=== PATIENT | male | born 1975 | race Caucasian/White ===

== ENCOUNTER 2019-10-26 09:08 | Inpatient (IN) | payer BC ==
[2019-10-26] MEDS ORDERED: Diltiazem HCl 125 MG, Admixture Fee 1 EACH in Sodium Chloride 0.9% 100 ML IVPB SCH (09:45)
[2019-10-26 10:01] LABS: #Basophils 0.1 thou/uL (0.0-0.2); #Eosinphils 0.1 thou/uL (0.0-0.7); #Monocytes 0.5 thou/uL (0.11-0.59); #Neutrophils 3.8 thou/uL (1.40-6.50); %Basophils 1.1 % (0.0-1.0); %Eosinophils 1.6 % (0.0-10.0); %Lymphocytes 30.5 % (21.0-51.0); %Neutrophils 59.7 % (42.0-75.0); Hemoglobin 16.5 g/dL (14.0-18.0); Mean Corpuscular HGB CONC 34.8 g/dL (32.0-36.0); Mean Corpuscular Volume 89.3 fL (78.0-98.0); Mean Platelet Volume 6.7 fL (7.4-10.4); Platelet Count 235 thou/uL (130-400); RBC Distribution Width 11.9 % (11.5-14.5); Red Blood Cell (RBC) Count 5.32 mill/uL (4.70-6.10); White Blood Cell (WBC) Count 6.4 thou/uL (4.8-10.8)
--- NOTE | 2019-10-26 10:03 | RAD ---
EXAM: Portable chest PROVIDED CLINICAL HISTORY: Chest pain COMPARISON: 05/31/2013 FINDINGS: Cardiac and mediastinal silhouette is within normal limits. No focal consolidation, pleural fluid or pneumothorax evident. IMPRESSION: No evidence for an acute cardiopulmonary process.
[2019-10-26 10:15] LABS: ALT (SGPT) 22 U/L (8-55); AST (SGOT) 26 U/L (5-34); Albumin 4.7 g/dL (3.5-5.0); Alkaline Phosphatase 63 U/L (40-110); Anion Gap 15 mmol/L (10-20); BUN (Urea Nitrogen) 15 mg/dL (8.9-20.6); Calc. Creatinine Clearance 0 mL/min (70-130); Calcium 9.4 mg/dL (7.8-10.44); Carbon Dioxide 26 mmol/L (22-29); Chloride 105 mmol/L (98-107); Estimated GFR-MDRD 72; Globulin 3.4 g/dL (2.4-3.5); Glucose 86 mg/dL (70-105); Magnesium 2.1 mg/dL (1.6-2.6); Protein, Total 8.1 g/dL (6.0-8.3); Sodium 142 mmol/L (136-145)
[2019-10-26] MEDS ORDERED: Enoxaparin Sodium 80 MG/0.8 ML SYRINGE ONE (11:22)
[2019-10-26] MEDS ORDERED: Enoxaparin Sodium 40 MG/0.4 ML SYRINGE ONE ×2 (11:22→11:23)
[2019-10-26 13:43] LABS: Troponin I Less than 0.010 ng/mL (< 0.028)
[2019-10-26] MEDS ORDERED: Diltiazem 125 MG in Sodium Chloride 0.9% 100 ML IVPB SCH (13:43)
[2019-10-26] MEDS ORDERED: Acetaminophen 325 MG TAB PO PRN (13:43)
[2019-10-26 14:02] VITALS: BMI 29.5
--- NOTE | 2019-10-26 14:44 | HP ---
PRIMARY CARE PHYSICIAN: Serafin Nguyễn DO CHIEF COMPLAINT: "I felt my heart racing and chest tightness." HISTORY OF PRESENT ILLNESS: Mr. Sullivan is a pleasant 44-year-old gentleman, who has a history of hyperthyroidism, status post thyroid ablation. He was in his usual state of health until Sunday. He says he was making a presentation when he started to notice some shortness of breath and he could feel his heart racing. He said this lasted about 10 to 15 minutes. The next day on , he felt okay. The following day on Sunday, he noticed some shortness of breath as well and he also felt his heart beating hard again and at this time, it lasted about half hour to an hour. It happened again on Sunday evening. He was noticing that he was belching a lot during the time, but there was no nausea, no vomiting, no dizziness, no lightheadedness. He says that he has been fairly active and has not noticed any chest pain or difficulty when he is out moving around and he had a similar episode happen several years ago. This is when he was found to have hyperthyroidism and he had a thyroid ablation and has been fine ever since. REVIEW OF SYSTEMS: All systems were reviewed and are negative except for that mentioned in the history of present illness. PAST MEDICAL HISTORY: Significant for hyperthyroidism. PAST SURGICAL HISTORY: He has had a thyroid ablation. ALLERGIES: NO KNOWN DRUG ALLERGIES. SOCIAL HISTORY: He works as a professor. He is , has 2 children. He denies any smoking. He does drink a beer occasionally a week. FAMILY HISTORY: Significant for diabetes. His sister had diabetes as well as grandparents and it is a combination of both type 1 and type 2 diabetes. Father had atrial fibrillation. Mother had breast cancer. CURRENT MEDICATION: Synthroid 75 mcg p.o. PHYSICAL EXAMINATION: GENERAL: He is alert and oriented. He appears to be in no acute distress. He is well developed and well nourished. VITAL SIGNS: Blood pressure 149/98; respiratory rate of 20; heart rate of 92 and at the highest, the heart rate was 150. HEENT: Pupils are equal, round, and reactive. Extraocular muscles are intact. His sclerae are anicteric. Throat, there is no erythema. No exudates. NECK: No adenopathy. No bruits. LUNGS: Clear to auscultation. There are no wheezing, no rales, no rhonchi. CARDIOVASCULAR: He has a normal S1 and S2. I did not appreciate an S3 or S4. No murmurs, clicks, or rubs. ABDOMEN: Soft. It is nontender and nondistended. Positive for bowel sounds. There is no rebound, no guarding, no organomegaly. EXTREMITIES: There is no clubbing or cyanosis. No edema. No calf tenderness. No joint effusions. NEUROLOGIC: The exam is nonfocal. SKIN AND INTEGUMENT: No skin changes. No rash. LABORATORY RESULTS: The white blood cell count is 6.4, hemoglobin 16.5, hematocrit is 47.5, and platelet count is 235. His chemistry panel was completely normal. He had a TSH, which was normal, but his EKG, it is sinus. It is a narrow complex tachycardia, possibly SVT or atrial fibrillation. The heart rate was around 158. ASSESSMENT AND PLAN: 1. This is a pleasant 44-year-old gentleman, who presents to the emergency room with a narrow complex tachycardia. He has been placed on a Cardizem drip to control his rate. This is new onset and it required Cardizem to control the rate. Therefore, he will be admitted inpatient. We will get an echocardiogram. Continue the Cardizem and consult Cardiology for further recommendations. 2. Hyperthyroidism, status post ablation. His TSH is currently negative and he appears clinically euthyroid as well. We will continue his Synthroid at the current dose and deep venous thrombosis prophylaxis will be performed with SCDs. Job ID: [id number]
[2019-10-26 17:16] LABS: Troponin I Less than 0.010 ng/mL (< 0.028)
[2019-10-26] MEDS: Famotidine 20 MG TAB PO SCH (20:23)
[2019-10-27 04:33] LABS: #Eosinphils 0.1 thou/uL (0.0-0.7); #Lymphocytes 2.5 thou/uL (1.20-3.40); #Monocytes 0.5 thou/uL (0.11-0.59); #Neutrophils 3.5 thou/uL (1.40-6.50); %Basophils 0.7 % (0.0-1.0); %Eosinophils 1.3 % (0.0-10.0); %Lymphocytes 38.2 % (21.0-51.0); %Monocytes 7.8 % (0.0-10.0); Mean Corpuscular HGB CONC 33.6 g/dL (32.0-36.0); Mean Corpuscular Hemoglobin 29.8 pg (27.0-31.0); Mean Corpuscular Volume 88.8 fL (78.0-98.0); Mean Platelet Volume 6.2 fL (7.4-10.4); Platelet Count 227 thou/uL (130-400); RBC Distribution Width 11.4 % (11.5-14.5); Red Blood Cell (RBC) Count 5.01 mill/uL (4.70-6.10); White Blood Cell (WBC) Count 6.6 thou/uL (4.8-10.8)
[2019-10-27 04:47] LABS: Anion Gap 12 mmol/L (10-20); BUN (Urea Nitrogen) 10 mg/dL (8.9-20.6); Calc. Creatinine Clearance 153 mL/min (70-130); Calcium 8.8 mg/dL (7.8-10.44); Carbon Dioxide 27 mmol/L (22-29); Chloride 104 mmol/L (98-107); Estimated GFR-MDRD 80; Glucose 88 mg/dL (70-105); Potassium 3.9 mmol/L (3.5-5.1); Sodium 139 mmol/L (136-145)
[2019-10-27] MEDS ORDERED: Levothyroxine 175 MCG TAB PO SCH (09:00)
[2019-10-27] MEDS: Famotidine 20 MG TAB PO SCH ×2 (10:04→21:33)
--- NOTE | 2019-10-27 11:55 | PDOC.HOSPP ---
- Subjective Encounter Date: 10/27/19 Encounter Time: 11:54 Subjective: Mr. Sullivan was seen today in follow-up of narrow complex tachycardia. He does not have any complaints. He denies feeling short of breath, no dizziness or lightheadedness. - Objective Vital Signs & Weight: Vital Signs (12 hours) Temp Pulse Resp BP BP Pulse Ox 10/27/19 07:37 98.4 F 90 18 131/87 97 10/27/19 04:00 97.6 F 69 18 125/80 96 10/27/19 00:00 73 139/75 Weight Weight 258 lb I&O: 10/26/19 10/27/19 10/28/19 06:59 06:59 06:59 Intake Total 2117.7 Output Total 2550 Balance -432.3 Result Diagrams: 10/27/19 03:49 10/27/19 03:49 Hospitalist ROS - Medication Medications: Active Medications Generic Name Dose Route Start Last Admin Trade Name Freq PRN Reason Stop Dose Admin Acetaminophen 650 mg 10/26/19 13:43 10/26/19 20:25 Tylenol PO 650 mg Q4H PRN Administration Headache/Fever/Mild Pain (1-3) Famotidine 20 mg 10/26/19 21:00 10/27/19 10:04 Pepcid PO 20 mg BID JENAE Administration Levothyroxine Sodium 175 mcg 10/27/19 09:00 10/27/19 10:04 Synthroid PO Not Given DAILY JENAE Sodium Chloride 10 ml 10/27/19 09:00 10/27/19 10:05 Flush - Normal Saline IVF 10 ml Q12HR JENAE Administration - Exam Eye: PERRL Respiratory: CTAB, no wheezes, no rales, no ronchi, normal chest expansion, no tachypnea Gastrointestinal: soft, non-tender, non-distended, normal bowel sounds, no palpable masses, no hepatomegaly, no splenomegaly, no bruit Extremities: no cyanosis, no clubbing, no edema Hosp A/P (1) Arrhythmia, atrial Code(s): I49.8 - OTHER SPECIFIED CARDIAC ARRHYTHMIAS Status: Acute (2) Hypothyroidism Code(s): E03.9 - HYPOTHYROIDISM, UNSPECIFIED Status: Chronic - Plan * Narrow complex Tachycardia- ? etiology- possibly AFIB/Aflutter, SVT- will await Cardiology recommendations * Echo noted * Hypothyroidism- clinically stable
[2019-10-27] MEDS ORDERED: Diltiazem 125 MG in Sodium Chloride 0.9% 100 ML IVPB SCH (17:02)
[2019-10-27 18:14] LABS: Free T4 (Free Thyroxine) 1.28 ng/dL (0.70-1.48)
--- NOTE | 2019-10-27 23:08 | CON ---
DATE OF CONSULTATION: HISTORY OF PRESENT ILLNESS: Mr. Manda Sullivan is a 44-year-old gentleman admitted with atrial fibrillation with fast ventricular response. He first developed atrial fibrillation in his mid 20s when he was found to be hyperthyroid. He ultimately underwent I-131 ablation of his thyroid and has been on replacement therapy since. Over the years, he has intermittently had atrial fibrillation. He was evaluated by Dr. Saldaña in the hospital in May 2013. It was felt that he probably was having PVCs and no atrial fibrillation was documented. He was seen by Dr. Saldaña and it was felt that he had appearance of ventricular contractions. The patient underwent Cardiolite treadmill testing, which revealed no evidence of ischemia. Mr. Sullivan states his last episode of rapid heartbeat was 2 years ago. He then went to an out of town conference and was not getting much rest and for the 1st time in 5 years, drank a lot of caffeinated beverages. He then started noticing increasing episodes of rapid heartbeat associated with some chest pressure. He came to the emergency room yesterday and was found to be in atrial fibrillation with rapid ventricular response, was started on intravenous Cardizem and converted to sinus rhythm. However, he continues to intermittently have breakthrough atrial fibrillation. At the present time, his last caffeinated beverage was 48 hours ago. PAST MEDICAL HISTORY: History of hyperthyroidism, status post I-131 ablation. OPERATIONS: None. MEDICATIONS: Levothyroxine 150 mcg daily. ALLERGIES: NONE. SOCIAL HISTORY: He does not smoke. He occasionally has a beer. He states he stopped caffeinated beverages 5 years ago, but has had some over the last 4 or 5 days. FAMILY HISTORY: Father had atrial fibrillation. REVIEW OF SYSTEMS: A 10-point review of systems is otherwise unremarkable. PHYSICAL EXAMINATION: VITAL SIGNS: Blood pressure 120/78, pulse 70. HEENT: PERRL. NECK: Supple. CHEST: Clear. CARDIAC: S1 and S2 normal without any S3, S4, or murmurs. ABDOMEN: Normal bowel sounds without tenderness or organomegaly. EXTREMITIES: Revealed no clubbing, cyanosis, or edema. NEUROLOGIC: Grossly intact. SKIN: Warm and dry. LABORATORY DATA: 1. EKG on admission revealed atrial fibrillation with rate of 158 per minute. 2. Cardiac enzymes are unremarkable. 3. CBC is normal. Sodium 139, potassium 3.9, chloride 104, carbon dioxide 27, BUN 10 and creatinine 1.02. 4. Echocardiogram revealed ejection fraction of 55% to 60% mild mitral regurgitation, mild tricuspid regurgitation. TSH is normal. IMPRESSION: 1. Paroxysmal atrial fibrillation since his mid 20s, although the last episode was 2 years ago until he had significant caffeine intake recently. 2. Status post I-131 ablation for hyperthyroidism, currently hypothyroid. RECOMMENDATIONS: Mr. Sullivan's CHADS-VASc score is less than 2 and he will be placed on aspirin 325 q.a.m. These episodes temporally seem to be related to a high caffeine intake. I will have the Cardizem tapered. If he does recur, then consideration should be given to suppressive therapy with flecainide. If it does not recur, then I would not place him on suppressive therapy at this time. With his last episode 2 years ago, I would just advise avoiding caffeine. Also, free T4 and free T3 will be obtained. Job ID: [id number]
[2019-10-28] MEDS ORDERED: Levothyroxine 150 MCG TAB ONE (05:51)
[2019-10-28] MEDS ORDERED: Levothyroxine 150 MCG TAB PO SCH (06:00)
[2019-10-28] MEDS: Famotidine 20 MG TAB PO SCH (08:18)
[2019-10-28] MEDS ORDERED: Aspirin 325 mg Enteric Coated Tablet PO SCH (09:00)
[2019-10-28] MEDS ORDERED: Flecainide 50 MG TAB PO SCH (09:00)
[2019-10-28 11:04] VITALS: BP 124/87; TEMP 98.1
--- NOTE | 2019-10-28 11:31 | PDOC.HOSPP ---
- Subjective Encounter Date: 10/28/19 Encounter Time: 11:29 Subjective: Mr. Sullivan was seen today in follow-up of AFIB with RVR. He does not have any complaints. - Objective Vital Signs & Weight: Vital Signs (12 hours) Temp Pulse Resp BP BP Pulse Ox 10/28/19 11:00 98.1 F 78 18 124/87 99 10/28/19 07:06 97.5 F L 73 18 124/84 97 10/27/19 23:44 60 122/63 Weight Weight 257 lb 3.2 oz I&O: 10/27/19 10/28/19 10/29/19 06:59 06:59 06:59 Intake Total 2117.7 3066 Output Total 2550 2640 Balance -432.3 426 Result Diagrams: 10/27/19 03:49 10/27/19 03:49 Hospitalist ROS - Medication Medications: Active Medications Generic Name Dose Route Start Last Admin Trade Name Freq PRN Reason Stop Dose Admin Acetaminophen 650 mg 10/26/19 13:43 10/26/19 20:25 Tylenol PO 650 mg Q4H PRN Administration Headache/Fever/Mild Pain (1-3) Aspirin 325 mg 10/28/19 09:00 10/28/19 08:18 Ecotrin PO 325 mg DAILY JENAE Administration Famotidine 20 mg 10/26/19 21:00 10/28/19 08:18 Pepcid PO 20 mg BID JENAE Administration Flecainide Acetate 50 mg 10/28/19 09:00 10/28/19 09:07 Tambocor PO 50 mg Q12HR JENAE Administration Levothyroxine Sodium 150 mcg 10/28/19 06:00 10/28/19 05:58 Synthroid PO 150 mcg 0600 JENAE Administration Sodium Chloride 10 ml 10/27/19 09:00 10/28/19 08:18 Flush - Normal Saline IVF 10 ml Q12HR JENAE Administration - Exam Eye: PERRL Heart: RRR, no murmur, no gallops, no rubs, normal peripheral pulses Respiratory: CTAB, no wheezes, no rales, no ronchi, normal chest expansion, no tachypnea, normal percussion Gastrointestinal: soft, non-tender, non-distended, normal bowel sounds, no palpable masses, no hepatomegaly Extremities: no cyanosis, no clubbing, no edema Hosp A/P (1) Arrhythmia, atrial Code(s): I49.8 - OTHER SPECIFIED CARDIAC ARRHYTHMIAS Status: Acute (2) Hypothyroidism Code(s): E03.9 - HYPOTHYROIDISM, UNSPECIFIED Status: Chronic - Plan * AFIB with RVR - resolved * Cardiology recommendations noted * Will continue Flecanide, and Aspirin, Avoid Caffeine * Plan is to place Event Monitor
--- NOTE | 2019-10-29 03:05 | DIS ---
DATE OF ADMISSION: 10/26/2019 DATE OF DISCHARGE: 10/28/2019 DISCHARGE DISPOSITION: Home. DISCHARGE DIAGNOSES: 1. Paroxysmal atrial fibrillation. 2. Hypothyroidism. DISCHARGE MEDICATIONS: Include: 1. Tambocor 50 mg twice daily. 2. Aspirin 325 mg daily. 3. Levothyroxine 150 mcg daily. PROCEDURES DONE DURING ADMISSION: Patient had an echocardiogram, which was essentially normal, normal ejection fraction of 50% to 55%. CODE STATUS: Full code. ALLERGIES: NO KNOWN DRUG ALLERGIES. HOSPITAL COURSE: Mr. Sullivan is a pleasant 44-year-old gentleman, who presented to the emergency room after having palpitations. He was found to be in atrial fibrillation with rapid ventricular response. He was placed on IV Cardizem and admitted. Cardiology was consulted. He underwent echocardiogram as well. The echocardiogram was essentially negative and the atrial fibrillation was very variable and paroxysmal. Each episode lasting no more than about 30 minutes. He did admit to a recent load on caffeine and has been counseled on the need to avoid caffeine in the future. He is also going to follow up with Dr. Martins and have an event monitor placed and at the time of discharge he was back in sinus rhythm. Again, placed on flecainide and aspirin and will need close outpatient followup. Job ID: [id number]
== END 2019-10-28 12:19 | disposition home or self-care (01) | DRG 310 ==
LOC: ERS 09:08 → 2NO 12:20
PROVIDERS: ADMIT Internal Medicine; ATTEND Internal Medicine
DX: I48.0 Paroxysmal atrial fibrillation (principal); Z79.899 Other long term (current) drug therapy; E03.9 Hypothyroidism, unspecified
CPT/HCPCS: 36415; 71045; 80048; 80053; 83735; 84439; 84443; 84481; 84484; 85025; 93005; 93306; 96365; 96366; 96372; 96376; J1650; J3490

== ENCOUNTER 2023-03-26 07:30 | Emergency (ER) | payer BC ==
[2023-03-26] MEDS ORDERED: Meclizine HCl 25 MG TAB ONE (08:28)
[2023-03-26] MEDS ORDERED: Ondansetron PF 4 MG/2 ML Vial ONE ×2 (08:28→08:41)
[2023-03-26] MEDS ORDERED: LORazepam 2 MG/ML SYR.(CARPUJECT) ONE (08:28)
[2023-03-26] MEDS ORDERED: Dexamethasone 10 MG/ML VIAL ONE (08:28)
[2023-03-26 08:43] LABS: #Monocytes 0.4 thou/uL (0.11-0.59); #Neutrophils 6.1 thou/uL (1.40-6.50); %Basophils 0.4 % (0.0-1.0); %Eosinophils 0.4 % (0.0-10.0); %Monocytes 5.3 % (0.0-10.0); %Neutrophils 81.6 % (42.0-75.0); Mean Corpuscular Hemoglobin 30.4 pg (27.0-31.0); Mean Corpuscular Volume 89.6 fl (78.0-98.0); Mean Platelet Volume 8.3 fL (7.4-10.4); Platelet Count 177 10x3/uL (130-400); RBC Distribution Width 11.9 % (11.5-14.5); White Blood Cell (WBC) Count 7.4 10x3/uL (4.8-10.8)
[2023-03-26 09:11] LABS: ALT (SGPT) 15 U/L (8-55); AST (SGOT) 15 U/L (5-34); Albumin 4.5 g/dL (3.5-5.0); Alkaline Phosphatase 52 U/L (40-110); Anion Gap 15 mmol/L (10-20); BUN (Urea Nitrogen) 12 mg/dL (8.9-20.6); Bilirubin, Total 0.5 mg/dL (0.2-1.2); Calc. Creatinine Clearance 0 mL/min (70-130); Calcium 9.1 mg/dL (7.8-10.44); Carbon Dioxide 22 mmol/L (22-29); Chloride 106 mmol/L (98-107); Estimated GFR 92; Globulin 2.9 g/dL (2.4-3.5); Glucose 115 mg/dL (70-105); Potassium 3.7 mmol/L (3.5-5.1); Protein, Total 7.4 g/dL (6.0-8.3); Sodium 139 mmol/L (136-145)
== END 2023-03-26 10:05 | disposition home or self-care (01) ==
LOC: ERS 07:30
DX: H81.09 Meniere's disease, unspecified ear (principal); J01.90 Acute sinusitis, unspecified; H10.9 Unspecified conjunctivitis; I10 Essential (primary) hypertension
CPT/HCPCS: 36415; 70450; 80053; 85025; 96374; 96375; J1100; J2060; J2405